=== PATIENT | female | born 1965 | race Caucasian/White ===

== ENCOUNTER 2024-01-27 06:27 | Observation (INO) ==
[2024-01-27] MEDS ORDERED: Phenylephrine IV 10 MG/ML 1 ml VIAL ONE (07:07)
[2024-01-27 07:09] LABS: Rapid COVID-19 Molecular Undetected (Undetected)
[2024-01-27] MEDS ORDERED: Lidocaine 2% PF 5 ML VIAL ONE (07:09)
[2024-01-27] MEDS ORDERED: ROPIVACAINE 5 MG/ML 30 ML BTL (0.5%) ONE (07:10)
[2024-01-27] MEDS ORDERED: KETAMINE HCL 10 MG/ML 20 ml VIAL (200 MG) ONE (07:11)
[2024-01-27] MEDS ORDERED: Propofol 10 MG/ML 20 ML BTL ONE ×2 (07:12→10:29)
[2024-01-27] MEDS ORDERED: Sevoflurane BOTTLE ONE (07:18)
[2024-01-27] MEDS ORDERED: ceFAZolin 2 GM in NS PREMIX 2 GM/100 ML BAG IVPB ONE (07:20)
[2024-01-27] MEDS ORDERED: Sodium Citrate/Citric Acid LIQ 15 ML UDC ONE (08:29)
[2024-01-27] MEDS ORDERED: Midazolam 2 mg/2 ml VIAL 1 mg/ml 2 ml VIAL (2 mg) ONE ×2 (08:52→10:47)
[2024-01-27] MEDS ORDERED: Phenylephrine 40 mcg/mL 10mL (400mcg) SYRINGE ONE (09:11)
[2024-01-27] MEDS ORDERED: Glycopyrrolate IV 0.2 MG/ML 1 ML VIAL ONE (09:30)
[2024-01-27] MEDS ORDERED: Ondansetron 4 mg VIAL 2 MG/ML 2 ml VIAL ONE (10:11)
[2024-01-27] MEDS ORDERED: Dexamethasone IV 4 MG/ML VIAL 1 ml VIAL ONE (10:11)
[2024-01-27] MEDS ORDERED: fentaNYL 100 mcg/2 ml 50 MCG/ML VIAL ONE (11:03)
[2024-01-27] MEDS ORDERED: Morphine 2 MG/ML SYRINGE IV PRN (11:34)
[2024-01-27] MEDS ORDERED: Lactulose 30 ml UDC PO PRN (11:34)
[2024-01-27] MEDS ORDERED: Magnesium Hydroxide LIQ 30 ML UDC PO PRN (11:34)
[2024-01-27] MEDS ORDERED: Calcium Carb (TUMS) 500 mg CHEW TAB PO PRN (11:34)
[2024-01-27] MEDS ORDERED: Ondansetron 4 mg VIAL 2 MG/ML 2 ml VIAL IV PRN (11:34)
[2024-01-27] MEDS: Lactated Ringers 1000 ml BAG 1,000 ML IV SCH (13:44)
[2024-01-27] MEDS: Ondansetron ODT 4 mg TAB 4 MG TAB PO PRN (14:44)
[2024-01-27] MEDS: ceFAZolin 2 GM in NS PREMIX 2 GM/100 ML BAG IVPB SCH (17:22)
[2024-01-27] MEDS ORDERED: NON FORMULARY MED (Azelastine 137 mcg (0.1 %) Aerosol,Spray) INTRANASAL PRN (17:36)
[2024-01-27] MEDS: Magnesium Hydroxide LIQ 30 ML UDC PO SCH (21:51)
[2024-01-28 05:51] LABS: Hematocrit 29.7 % (35-45); Hemoglobin 10.5 g/dL (11.5-14.3); Mean Platelet Volume 7.3 fL (7.5-11.2); Platelet Count 190 10^3/uL (150-450)
[2024-01-28 06:10] LABS: Calcium 8.5 mg/dL (8.6-10.3); Creatinine, Serum 0.76 mg/dL (0.51-0.95); Potassium 4.2 mmol/L (3.5-5.0); eGFR CKD-EPI 91.9 (>60)
[2024-01-28 09:26] VITALS: BP 117/65
[2024-01-28] MEDS: Cholecalciferol (VIT D3) 1,000 unit TAB PO SCH (09:36)
[2024-01-28] MEDS: Calcium/Vitamin D TAB 250/125 TAB PO SCH (09:37)
[2024-01-28] MEDS: Vitamin THERAPEUTIC TAB PO SCH (09:37)
[2024-01-28] MEDS: Solifenacin 5 mg TAB (NF) PO SCH (09:40)
[2024-01-28] MEDS: Fluticasone NASAL SPRAY 50MCG 16 gm SPRAY BTL INTRANASAL SCH (09:41)
== END 2024-01-28 13:10 | disposition home or self-care (01) ==
LOC: SSU 06:27 → OR 06:27
PROVIDERS: ADMIT Orthopaedic Surgery Adult Reconstructive Orthopaedic Surgery; ATTEND Orthopaedic Surgery Adult Reconstructive Orthopaedic Surgery